=== PATIENT | female | born 1950 | race Caucasian/White ===

== ENCOUNTER 2020-10-14 01:13 | Day surgery (SDC) | payer MEDICARE, SELFPAY ==
[2020-10-06 11:00] VITALS: BMI 28.0
[2020-10-14 09:06] VITALS: BP 139/80; RESP 20; TEMP 35.7; O2SAT 99; BMI 27.8
[2020-10-14] MEDS: LACTATED RINGERS 1,000 ML 150 ML IV CONT (09:27)
[2020-10-14 09:30] LABS: Glucose Point of Care 192 mg/dl (65-105)
--- NOTE | 2020-10-14 10:03 | P.PNAN_ITS ---
Anes - Initial Pre Proc Eval Procedure: Operation Date: 10/14/20 10:00 Proposed Procedures p Screening Colonoscopy - Dane Lua MD Date/Time: 10/14/20 10:03 Surgeon: Daen Lua MD Pre Op Diagnosis: Hx of colon polyps Patient Data Age: 69 Gender: F Height: 1.63 m Weight: 73.6 kg Last Vital Signs Temp 96.2 F L 10/14/20 09:06 Resp 20 10/14/20 09:06 BP 139/80 10/14/20 09:06 Pulse Ox 99 10/14/20 09:06 Allergies Allergy/AdvReac Type Severity Reaction Status Date / Time No Known Allergies Allergy Unverified 10/06/20 11:00 Home Medications Medication Instructions Recorded Confirmed Type atorvastatin 10 mg tablet 10 mg PO DAILY 09/26/19 10/06/20 History metformin 500 mg tablet 500 mg PO TID 09/26/19 10/06/20 History alprazolam 0.25 mg PO BID PRN 10/06/20 10/06/20 History Laboratory Tests 10/14/20 09:20 POC Capillary Glucose 192 mg/dl H mg/dl (65-105) Patient hx anesthesia problems: none Family hx anesthesia problems: none PMFSH Past Medical History Medical History (Updated 09/26/19 @ 09:44 by Calli Mclaughlin CMA) Anxiety Breast cancer Diabetes mellitus Type 2 Renal stones Vaginal delivery 07/24/70, , full term, female, 9#10 03/31/77, , full term, male, 9#12 Surgical History Surgical History (Updated 09/26/19 @ 09:42 by Calli Mclaughlin CMA) History of breast reconstruction 2014 History of myomectomy 1998 [place] teeth extracted Family History Family History (Updated 09/26/19 @ 09:43 by Calli Mclaughlin CMA) Father Acute myocardial infarction Daughter Ovarian cancer Sibling Acute myocardial infarction Social History Social History (Updated 09/26/19 @ 08:42 by Calli Mclaughlin CMA) Smoking status: Never smoker Alcohol intake: never Substance use: never Substance use type: does not use Living arrangements: with family Spiritual care concerns: No Anes - Eval Final PreProcedure Day of Procedure 10/14/20 10:03 Patient weight: overweight Heart: regular rate and rhythm Lungs: clear to auscultation Airway: Mallampati scale class II Neurological: alert and oriented Last oral intake: >/= 8 hours ASA classification: III Emergent: no Anesthetic plan: proceed Anesthesia type and monitoring: general GIVS and standard monitoring Informed Consent: The patient's anesthetic plan and its attendant risks and benefits were discussed with the patient/family/POA. Questions were solicited and answers provided to the satisfaction of the patient/family/POA.
--- NOTE | 2020-10-14 10:11 | P.HP_ITS ---
History of Present Illness History of Present Illness Consent: Risks, benefits, and alternatives have been discussed and questions answered. Patient agrees to proceed with procedure. Chief complaint: Hx of colon polyps Narrative: Yaneth Blank is a 69 year old female Here for colon cancer screening. She had a polyp removed about 5 years ago Review of Systems Review of Systems: All systems reviewed & are unremarkable except as noted in HPI and below PMFSH Past Medical History Medical History Anxiety Breast cancer Diabetes mellitus Type 2 Renal stones Vaginal delivery 07/24/70, , full term, female, 9#10 03/31/77, , full term, male, 9#12 Surgical History Surgical History History of breast reconstruction 2013 History of myomectomy 1998 [place] teeth extracted Family History Family History Father Acute myocardial infarction Daughter Ovarian cancer Sibling Acute myocardial infarction Social History Social History Smoking status: Never smoker Alcohol intake: never Substance use: never Substance use type: does not use Living arrangements: with family Spiritual care concerns: No Meds Home Medications and Allergies Home Medications Medication Instructions Recorded Confirmed Type atorvastatin 10 mg tablet 10 mg PO DAILY 09/26/19 10/06/20 History metformin 500 mg tablet 500 mg PO TID 09/26/19 10/06/20 History alprazolam 0.25 mg PO BID PRN 10/06/20 10/06/20 History Allergies Allergy/AdvReac Type Severity Reaction Status Date / Time No Known Allergies Allergy Unverified 10/06/20 11:00 Vital Signs Vital Signs - 24 hr 10/14/20 09:06 Temperature 35.7 C L Respiratory Rate 20 Blood Pressure 139/80 Pulse Oximetry 99 Exam Resp: Auscultation: clear to auscultation bilaterally Cardio: Rate: regular rate Rhythm: regular rhythm GI: GI Palp: Yes Soft to palpation and No Tenderness to palpation present (GI) Assessment and Plan Assessment and plan (1) Colon cancer screening: Code(s): Z12.11 - Encounter for screening for malignant neoplasm of colon Status: Acute Assessment and Plan: Colonoscopy with possible biopsy or polypectomy or cautery or injection of substances.
[2020-10-14 10:39] VITALS: BP 86/41; PULSE 70; RESP 18; O2SAT 100
[2020-10-14 10:49] VITALS: BP 89/51; PULSE 68; RESP 14; O2SAT 98
[2020-10-14 10:59] VITALS: BP 112/62; PULSE 70; RESP 15; O2SAT 95
== END 2020-10-14 11:15 | disposition home or self-care (01) ==
PROVIDERS: PCP Family Medicine; Visit Provider Internal Medicine Gastroenterology
PROC: 0DJD8ZZ Inspection of Lower Intestinal Tract, Via Natural or Artificial Opening Endoscopic (ICD-10-PCS; CPT 45378; principal; 2020-10-14 10:00)
DX: Z12.11 Encounter for screening for malignant neoplasm of colon (principal); Z86.010 Personal history of colon polyps; K57.30 Diverticulosis of large intestine without perforation or abscess without bleeding; E11.9 Type 2 diabetes mellitus without complications; F41.9 Anxiety disorder, unspecified; Z85.3 Personal history of malignant neoplasm of breast
CPT/HCPCS: G0105; 82948; J7120

== ENCOUNTER 2024-07-22 10:45 | Outpatient (RCR) | payer MEDICARE, SELFPAY ==
[2024-06-10 08:20] VITALS: BMI 27.1
[2024-06-10 08:21] VITALS: BMI 27.1
[2024-07-22 10:44] VITALS: BMI 27.1
[2024-07-22 10:45] VITALS: BMI 27.1
== END 2024-09-02 07:52 | disposition home or self-care (01) ==
LOC: ANHDMC 10:45
PROVIDERS: PCP Family Medicine; Visit Provider Internal Medicine Endocrinology, Diabetes & Metabolism
DX: E11.65 Type 2 diabetes mellitus with hyperglycemia (principal); Z71.3 Dietary counseling and surveillance; Z71.89 Other specified counseling
CPT/HCPCS: 97802; 97803; G0108; G0109

== ENCOUNTER 2024-11-06 14:31 | Outpatient (RCR) | payer MEDICARE, SELFPAY | END 2024-12-19 15:56 | disposition home or self-care (01) | LOC: ANHDMC 14:31 | PROVIDERS: PCP Family Medicine; Visit Provider Internal Medicine Endocrinology, Diabetes & Metabolism | DX: E11.65 Type 2 diabetes mellitus with hyperglycemia (principal); Z71.89 Other specified counseling | CPT/HCPCS: G0109 ==

== ENCOUNTER 2025-01-19 10:36 | Outpatient (CLI) | payer MEDICARE, SELFPAY ==
--- NOTE | ~2025-01-19 | XR_ITS ---
XR abdomen/kub 1V 01/19/2025 10:51 Indication: Abnormal renal function tests. Procedure: KUB Comparison: No prior studies for comparison. Findings: Nonobstructive bowel gas pattern. There are calcifications at the L4-5 level on the left, suspicious for renal stones. There are pelvic phleboliths. There is calcification left mid abdomen lateral to the expected location of the kidney, possibly lymph node calcification. There are splenic arterial calcification. No acute osseous abnormality. Impression: 1: Possible left urolithiasis. Recommend correlation with CT. Reviewed, dictated and finalized at location I. EM CONTROLLER Impression: 1: Possible left urolithiasis. Recommend correlation with CT.
--- OUTSIDE RECORDS SUMMARY | 2025-01-19 12:07 | XMS_ITS | Clinical Summary ---
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 Gender Identity Not on file Sexual Orientation Not on file Plan of Treatment Health Maintenance Due Date Last Done Comments Colon Cancer Screening-Colonoscopy 1949 Depression Screening 1949 Fall Risk Assessment 1950 Hepatitis C Screening 1950 Hepatitis B Screening 11/06/1967 Zoster Vaccine (1 of 2) 11/06/1999 Well Visit 65+ 2014 Osteoporosis Screening-Bone Density Scan 04/26/2015 04/25/2013, 04/25/2013, 01/30/2011 Covid-19 Vaccine (2024- 6 season) 2024 12/31/2023, 01/28/2023, 11/16/2021, Additional history exists Influenza Vaccine (#1) 2024 , 01/28/2023, 11/21/2021, Additional history exists DTaP/Tdap/Td Vaccine (2 - Td or Tdap) 04/14/2033 04/14/2023 Pneumococcal vaccine 65+ Completed 10/18/2020, 07/21 Insurance MEDICARE ADVANTAGE MEDICARE ADVANTAGE Care Teams Buckle And Button Maker Relationship Specialty Start Date End Date Selena Qiu NP [address] [place] [address] [place] [address] PCP - General Family Medicine 10/10/24
--- OUTSIDE RECORDS SUMMARY | 2025-01-19 12:07 | XMS_ITS | Clinical Summary ---
Author Organization [facility] Address [address] [place] [address] Phone Care Team Providers Care Call Or Contact Centre Team Leader Name Role Phone Arabella Troy MD Primary Care Provider + Allergies No known active allergies Medications metFORMIN (GLUCOPHAGE) 500 mg Oral tabletIndication s:Breast lump Take 500 mg by mouth 2 times daily. Active cephALEXin (KEFLEX) 500 mg capsule Take 1 Capsule (500 mg) by mouth daily. 60 Capsule 3 10/13/2019 Active sulfamethoxazole -trimethoprim (BACTRIM DS) 800-160 mg tablet Take 1 Tablet by mouth 2 times daily. 10 Tablet 01/30/2020 Active escitalopram 10 mg tablet Take 10 mg by mouth daily. Active sulfamethoxazole -trimethoprim (BACTRIM DS) 800-160 mg tablet Take 1 Tablet by mouth 2 times daily. 10 Tablet 02/17/2022 Active sulfamethoxazole -trimethoprim (BACTRIM DS) 800-160 mg tablet Take 1 Tablet by mouth 2 times daily. 10 Tablet 06/21/2022 Active cephALEXin (KEFLEX) 500 mg capsule Take 1 Capsule (500 mg) by mouth daily. 60 Capsule 08/25/2022 Active cephALEXin (KEFLEX) 500 mg capsule TAKE 1 CAPSULE(500 MG) BY MOUTH DAILY 90 Capsule 3 03/04/2024 Active atorvastatin (LIPITOR) 40 mg tablet Take 40 mg by mouth daily. Active amLODIPine (NORVASC) 5 mg tablet Take 5 mg by mouth daily. Active ezetimibe (ZETIA) 10 mg tablet Take 10 mg by mouth daily. Active dapagliflozin propanediol (Farxiga) 5 mg Tablet Take by mouth daily. Active ALPRAZolam (XANAX) 0.25 mg tablet Take 0.25 mg by mouth nightly as needed for Anxiety. Active Active Problems Patient Care Coordination No te Formatting of this note migh t be different from the original. Primary Care: Maynor Ramos MD Referring Provider: Ora Almeida MD [facility] [place] [address] Other: Dr Indiana Matias Problem Noted Date Diagnosed Date Diverticulitis large intesti ne w/o perforation or abscess w/o bleeding 03/14/2018 Type 2 diabetes mellitus wit hout complication, without long-term current use of insulin 03/14/2018 Personal history of malignant neoplasm of breast 05/10/2017 Sepsis 05/28/2014 UTI (lower urinary tract infection) 05/28/2014 Severe sepsis 05/28/2014 ARF (acute renal failure) 05/28/2014 S/P bilateral mastectomy 04/27/2014 Pain disorder 04/02/2014 Pyelonephritis 04/01/2014 Nephrolithiasis 04/01/2014 Hypothyroidism 04/01/2014 Breast cancer, (2013) left breast triple neg Overview (03/11/2014): PATHOLOGY: Date: 12/26/13 bx; 02/18/14 bilat mast Breast: L Cell type: IDC, 2.7 cm ER: neg (-) FL: neg (-) Her2 raúl: NA (-) Grade: HG Ki67 83% Lymph node status: neg (-) 0/5 Staging: T2 N0 Mx Stage: II Current cancer treatment regimen if any: FEC-T Malignant neoplasm of female breast 06/14/2010 Overview (07/12/2010): PATHOLOGY: Date: 04/25/10 core, 05/18/10 Lump with SLNBx, 06/01 re-excision Breast: Left Cell type: ILC, 2.8cm ER: (+) 8/8 FL: (+) 8/ Ki67: 71% Her2 raúl: (not) amplified Grade: IG (NH7) Lymph node status: (+) 2/10 (1/7 SLN with ITC, 1/3 ALN +) LVI: (not) present Staging: T2 N1 Mx Stage: II Diabetes mellitus Pyelonephritis, unspecified Generalized pain Resolved Problems Problem Noted Date Diagnosed Date Resolved Date Neutropenia 04/01/2014 11/25/2018 Seroma complicating a procedure 06/14/2010 05/28/2014 Breast lump 04/25/2010 03/03/2014 Abnormal mammogram 04/25/2010 5 Type II or unspecified type diabetes mellitus without mention of complication, not stated as uncontrolled 05/28/2014 Unspecified hypothyroidism 0 05/28/2014 Encounters Date Type Department Care Team Description 01/06/2025 External Device Data [facility] ABSTRACTION Provider, Abstract 12/23/2024 External Device Data [facility] ABSTRACTION Provider, Abstract 10/21/2024 External Device Data [facility] ABSTRACTION Provider, Abstract from Last 3 Months Immunizations Immunization Administration Dates Next Due Influenza Seasonal Unspecified Formulation IM ,11/19/2013 Family History Medical History Relation Name Comments Heart Disease Father heart attack Cancer Maternal Aunt female? 60's Breast Cancer Maternal Cousin 30's Cancer Paternal Aunt liver 50's Cancer Paternal Grandmother leukemia 60's Relation Name Status Comments Father Maternal Aunt Maternal Cousin Paternal Aunt liver Paternal Grandmother leukemia Social History Tobacco Use Types Packs/Day Years Used Date Smoking Tobacco: Never Smokeless Tobacco: Never Tobacco Cessation:Counseling Given: Yes Alcohol Use Standard Drinks/Week Comments Yes 0 (1 standard drink = 0.6 oz pur e alcohol) rare Comments No Sex and Gender Information Value Date Recorded Sex Assigned at Not on file Legal Sex Female 6:00 AM MANAGER RADIATION Gender Identity Not on file Sexual Orientation Not on file Occupation Industry Job Start Date Job End Date Not on file Not on file Not on file Not on file Last Filed Vital Signs Vital Sign Reading Time Taken Comments Blood Pressure 126/72 09/18/2024 1:23 PM CDT Pulse 93 09/18/2024 1:23 PM CDT Temperature 36.9 C (98.5 F) 09/18/2024 1:23 PM CDT Respiratory Rate 18 09/18/2024 1:23 PM CDT Oxygen Saturation 96% 09/18/2024 1:23 PM CDT Inhaled Oxygen Concentration - - Weight 71.7 kg (158 lb 1.6 oz) 09/18/2024 1:23 P M CDT Height 162.6 cm (5' 4) 09/18/2024 1:23 PM CDT Body Mass Index 27.14 09/18/2024 1:23 PM CDT Plan of Treatment Health Maintenance Due Date Last Done Comments DIABETES ANNUAL FOOT EXAM 11/06/1967 DIABETES MICROALBUMIN ANNUAL SCREEN 11/06/1967 DTAP/TDAP/TD VACCINES (1 - Tdap) 1968 FIT-DNA Q 3 years 1994 FIT/FOBT Q 1 year 1994 Flex Sig/CT Colonography Q 5 years 1994 ZOSTER VACCINE (1 of 2) 11/06/1999 LDL CHOLESTEROL ANNUAL 07/22/2015 07/21/2014 DIABETES HBA1C Q 6 MONTHS 02/15/20232022, 05/23/2022, 02/28/2022, Additional history exists DIABETES ANNUAL RETINAL EXAM 03/20/2023, 02/27/2022, 01/07/2021, Additional history exists OSTEOPOROSIS SCREENING 08/27/2024 0, 08/28/2019, 04/25/2013, Additional history exists INFLUENZA VACCINE (#1) 2024 2, 12/01/2020, 12/19/2018, Additional history exists COVID-19 Vaccine ( - 2024-2 6 season) 2024 11/16/2021, 04/22/2020, 03/25/2020 RSV VACCINE (60+ or ) (1 - 1-dose 75+ series) 2024 COLORECTAL SCREENING 10/14/2030 10/14/2020, 04/28/2015, 04/27/2015 Colorectal Cancer Screening 10/14/2030 PNEUMOCOCCAL VACCINE 50+ YEARS Completed 10/18/2020 , 08/18/2019 Medical Devices Implanted Type Area Visiting Professor Device Identifier Shelf Expiration Date Model / Serial / Lot Mammary Silicone Gel 500ml - - [id number] Implanted:Qty : 1 on 09/23/2014 by Maynor Phelps MD at [facility] Mammary Right: Breast [employer]- MEDICAL 10/19/2017-500 / / [id number] Mammary Silicone Gel 475ml 20-475 - [id number] Implanted:Qty : 1 on 09/23/2014 by Maynor Phelps MD at [facility] Mammary Left: Breast [employer]ICAL 06/18/2017 20-475 / / [id number] Stent Prcflx Plus [id number] 175-603 - [id number] Implanted:Qty : 1 on 08/06/2014 by Bethel Lopez MD at [facility] Stent Left: Ureter [employer]- UROLOGY/DOUGHNUT MACHINE OPERATOR HELPER 03/20/2017 175-253 / / [id number] Port A Cath Explanted Type Area Visiting Professor Device Identifier Shelf Expiration Date Model / Serial / Lot Harness Worker Mammary 400ml 133mv-13 - [id number] Implanted:Qty : 1 on 02/18/2014 by Maynor Phelps MD at [facility] Explanted:Qty : 1 on 09/23/2014 by Maynor Phelps MD at [facility] Left: Breast [employer]- MEDICAL 12/19/2016 133MV-13 / [id number] / [id number] Description:Initial fill 120 ml Harness Worker Mammary 400ml 133mv-13 - [id number] Implanted:Qty : 1 on 02/18/2014 by Maynor Phelps MD at [facility] Explanted:Qty : 1 on 09/23/2014 by Maynor Phelps MD at [facility] Mammary Right: Breast [employer]ICAL 10/16/2017 133MV-13 / [id number] / [id number] Description:Initial fill-120 ml Stent Contour [id number] 180-223 - [id number] Implanted:Qty : 1 on 05/28/2014 by Bethel Lopez MD at [facility] Stent Right: Ureter [employer]- UROLOGY/DOUGHNUT MACHINE OPERATOR HELPER 02/17/2017 180-223 / / [id number] Stent Contour [id number] 180-224 - [id number] Implanted:Qty : 1 on 05/28/2014 by Bethel Lopez MD at [facility] Explanted:Qty : 1 on 08/06/2014 by Bethel Lopez MD at [facility] Stent Left: Ureter [employer]- UROLOGY/DOUGHNUT MACHINE OPERATOR HELPER 08/18/2016 180-224 / / [id number] Port Implanted:Qty : 1 on 04/29/2014 by Rosalba Eduardo MD Explanted:Qty : 1 on 11/02/2014 by Margoth Cortez MD at [facility] Chest Wall CR BARD- ACCESS SYS 12/19/2015 [id number] / / [id number] Description:8fr ISP Power Po rt placed by Procedures Procedure Name Priority Date/Time Associated Diagnosis Comments LIPID PANEL Routine 07/21/2014 9:35 AM CDT HEMOGLOBIN A1C Routine 07/21/2014 9:35 AM CDT XR DEXA BONE DENSITY AXIAL 1 OR MORE SITES Routine 04/25/2013 10:52 AM MANAGER RADIATION Special screening for osteoporosis Asymptomatic postmenopausal status (age-related) (natural) from Last 3 Months or Most Recently Relevant to Health Maintenance Results * HEMOGLOBIN A1C (07/21/2014 9:35 AM CDT) Pathologist [facility] HEMOGLOBIN A1C 6.1 4.1 - 6.1 % 07/21/2014 3:32 PM CDT [facility] EST. AVG GLUCOSE, A1C 128 mg/dL 07/21/2014 3:32 PM CDT [facility] Blood Collection / Unknown 07/21/2014 9:35 AM CDT 07/21/2014 9:34 AM CDT Narrative [facility] - 07/21/2014 3:32 PM CDT Based on the ADAG study equation. us External Provider [facility] CHEMISTRY ORDERABLES Fin al Result [facility] CLIA# [id number] 5 [facility] [place] [id number] * (ABNORMAL) LIPID PANEL (07/21/2014 9:35 AM CDT) Pathologist [facility] CHOLESTEROL 158 100 - 199 mg/dL 07/21/2014 10:18 AM CDT [facility] TRIGLYCERIDE 188(H) 10 - 149 mg/dL 07/21/2014 10:18 AM CDT [facility] HDL 42 40 - 59 mg/dL 07/21/2014 10:18 AM T [facility] LDL CALCULATED 78 <99 mg/dL 07/21/2014 10:18 AM CDT [facility] NON-HDL CHOLESTEROL 116 <130 mg/dL 07/21/2014 10:18 AM T [facility] Blood Collection / Unknown 07/21/2014 9:35 AM CDT 07/21/2014 9:34 AM CDT Narrative [facility] - 07/21/2014 10:18 AM CDT TOTAL CHOLESTEROL mg/dL Desirable <200 Borderline high 200-239 High >=240 TRIGLYCERIDES mg/dL Normal <150 Borderline high 150-199 High 200-499 Very high >=500 HDL CHOLESTEROL mg/dL Low <40 Normal 40-60 Desirable >60 LDL CHOLESTEROL mg/dL Optimal <100 Low risk 100-129 Borderline high 130-159 High 160-189 Very high >=190 NON HDL CHOLESTEROL mg/dL Desirable <130 Borderline high 130-159 High 160-189 Very high >=190 Based on AHA/NCEP Guidelines us External Provider [facility] CHEMISTRY ORDERABLES Fin al Result [facility]# [id number] 5 [facility] [place] [address] * XR DEXA BONE DENSITY AXIAL 1 OR MORE SITES (04/25/2013 10:52 AM MANAGER RADIATION) Anatomical Region Laterality Modality Computed Radiogr aphy 04/25/2013 10:5 1 AM MANAGER RADIATION Narrative 04/25/2013 10:59 AM MANAGER RADIATION XR DEXA BONE DENSITY AXIAL 1 OR MORE SITES Dictated from Location 1 ([facility]) HISTORY: 62 yo F with postmenopausal symptoms on calcium supplementation on vitamin D supplementation, with a history of breast carcinoma needing evaluation for osteoporosis. PROCEDURE: Using a [employer] dual energy x-ray absorptiometry system, the patient's bone mineral density was measured over the lumbar spine and femoral necks. Comparison was made to age and sex matched normal values. FINDINGS: Lumbar Spine (L1-L4) Bone Mineral Density = 1.179 gm/cm2 Compared to young adult (T-score), difference of 0.0 Standard Deviations. The patient's spine BMD is normal when compared to that of a young adult. Left Femoral Neck Bone Mineral Density = 1.014 gm/cm2 Compared to young adult (T-score), difference of -0.2 Standard Deviations. The patient's left femoral neck BMD is normal when compared to that of a young adult. Right Femoral Neck Bone Mineral Density = 0.983 gm/cm2 Compared to young adult (T-score), difference of -0.4 Standard Deviations. The patient's right femoral neck BMD is normal when compared to that of a young adult. Comparison is made to the most recent measurements of BMD dated 01/30/2011. The prior spine (L1-L4) BMD was 1.219 gm/cm2. Today's value represents a change of -3.3%, a statistically significant change. The prior left femoral neck BMD was 1.055 gm/cm2. Today's value represents a change of -3.9%, a statistically significant change. The prior right femoral neck BMD was 1.040 gm/cm2. Today's value represents a change of -5.5%, a statistically significant change. A significant change is defined as a change of at least 2.5 standard deviations since the prior study. Procedure Note Tayo Cr DO - 04/25/2013 XR DEXA BONE DENSITY AXIAL 1 OR MORE SITES Dictated from Location 1 ([facility]) HISTORY: 62 yo F with postmenopausal symptoms on calcium supplementation on vitamin D supplementation, with a history of breast carcinoma needing evaluation for osteoporosis. PROCEDURE: Using a [employer] dual energy x-ray absorptiometry system, the patient's bone mineral density was measured over the lumbar spine and femoral necks. Comparison was made to age and sex matched normal values. FINDINGS: Lumbar Spine (L1-L4) Bone Mineral Density = 1.179 gm/cm2 Compared to young adult (T-score), difference of 0.0 Standard Deviations. The patient's spine BMD is normal when compared to that of a young adult. Left Femoral Neck Bone Mineral Density = 1.014 gm/cm2 Compared to young adult (T-score), difference of -0.2 Standard Deviations. The patient's left femoral neck BMD is normal when compared to that of a young adult. Right Femoral Neck Bone Mineral Density = 0.983 gm/cm2 Compared to young adult (T-score), difference of -0.4 Standard Deviations. The patient's right femoral neck BMD is normal when compared to that of a young adult. Comparison is made to the most recent measurements of BMD dated 01/30/2011. The prior spine (L1-L4) BMD was 1.219 gm/cm2. Today's value represents a change of -3.3%, a statistically significant change. The prior left femoral neck BMD was 1.055 gm/cm2. Today's value represents a change of -3.9%, a statistically significant change. The prior right femoral neck BMD was 1.040 gm/cm2. Today's value represents a change of -5.5%, a statistically significant change. A significant change is defined as a change of at least 2.5 standard deviations since the prior study. Mandie Bardales DO DIAGNOSTIC IMAGING ORDERABL ES Final Result from Last 3 Months or Most Recently Relevant to Health Maintenance Insurance Advance Directives For more information, please contact: [phone] * Full Code (Latest Code Status on File) Date Activated Date Inactivated Comments 03/14/2018 2:55 AM 03/14/2018 10:12 PM * Full Code Date Activated Date Inactivated Comments 11/02/2014 9:58 AM 11/02/2014 2:06 PM * Full Code Date Activated Date Inactivated Comments 09/23/2014 9:12 AM 09/23/2014 6:05 PM * Full Code Date Activated Date Inactivated Comments 08/06/2014 10:42 AM 08/06/2014 7:46 PM * Full Code Date Activated Date Inactivated Comments 05/28/2014 3:03 PM 06/01/2014 6:01 PM Care Teams Call Or Contact Centre Team Leader Relationship Specialty Start Date End Date Arabella Troy MD [address] [place] [address] [place] [address] PCP - General Family Practice 05/02/21
--- OUTSIDE RECORDS SUMMARY | 2025-01-19 12:07 | XMS_ITS | Clinical Summary ---
Author Organization [facility] Address [address] [place] [address] Care Team Providers Care Bridge Manager Name Role Phone Unavailable Primary Care Provider Unavailabl e Source Comments [facility],non-owned Affiliates and Associated Physician Practices is amultiple site organization consisting of ambulatory clinics and hospital sitesin [place] and [place]. This disclosure is being madepursuant to the Care Everywhere program and may not contain all information available regarding this patient. Last updated 17.[facility] Social History Tobacco Use Types Packs/Day Years Used Date Smoking Tobacco: Never Assessed Comments Unknown Sex and Gender Information Value Date Recorded Sex Assigned at Not on file Legal Sex Female 4:20 PM CDT Gender Identity Not on file Sexual Orientation Not on file Plan of Treatment Health Maintenance Due Date Last Done Comments COLOGUARD (AGES 45-75) - COL ON CA SCREENING 1950 COLON MONITORING 1950 COLONOSCOPY - COLON CA SCREENING 1949 CT COLONOGRAPHY - COLON CA SCREENING 1950 Colorectal Cancer Screening 1950 FIT - COLON CA SCREENING 1949 FLEX SIG - COLON CA SCREENING 1949 LIPID TESTING 1950 MEDICARE AWV 12 MONTHS 1950 HEPATITIS C SCREENING 11/01/1967 DTAP/TDAP/TD VACCINES (1 - Tdap) 1968 PNEUMOCOCCAL VACCINE 50+ (1 of 1 - PCV) 11/06/1999 ZOSTER VACCINE (1 of 2) 11/06/1999 MAMMOGRAM 04/26/2015 04/25/2013, 04/19/2012 DEPRESSION SCREENING 02/20/2024 COVID-19 VACCINE (3 - 2024-2 6 season) 2024 04/22/2020, 03/25/2020 INFLUENZA VACCINE (#1) 2024 8, 11/19/2013 Respiratory Syncytial Virus (RSV) Vaccine Pt: or over 60 yrs (1 - 1-dose 75+ series) 2024 BONE DENSITY TESTING Completed 08/28/2019, 04/25/2013, 01/30/2011 HEPATITIS B VACCINE Aged Out No longe r eligible based on patient's age to complete this topic HIB VACCINE Aged Out No longer eligi ble based on patient's age to complete this topic HPV VACCINE Aged Out No longer eligi ble based on patient's age to complete this topic MENINGOCOCCAL (Group B) VACCINE SHARED DECISION-MAKING Aged Out No longer eligible based on patient's age to complete this topic MENINGOCOCCAL GROUPS A/C/Y/W VACCINE Aged Out No longer eligible b ased on patient's age to complete this topic Insurance MEDICARE
--- OUTSIDE RECORDS SUMMARY | 2025-01-19 12:07 | XMS_ITS ---
Author Organization [facility] Address [address] [place] [address] Phone Care Team Providers Care Watchmaking Teacher Name Role Phone Arabella Troy MD Primary Care Provider + Active Problems Patient Care Coordination No te Formatting of this note migh t be different from the original. 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 Past Treatment and Therapy Plans ONCOLOGY THERAPY PLAN Plan Name Start Date Discontinue Date Treatment Medications Discontinue Reason Plan Provider BLANK SUPPORTIVE CARE THERAPY PLAN 03/24/2014 08/12/2015 No medications scheduled. Other Mandie Bardales DO ONCOLOGY TREATMENT Plan Name Start Date Discontinue Date Treatment Medications Discontinue Reason Plan Provider Cycles OP ONC BREAST_DO CETAXEL_E VERY 21 DAYS 05/27/2014 08/12/2015 DOCEtaxel (TAXOTERE) IVPB Therapy Complete Mandie Bardales DO 3 of 3 cycles started OP ONC BREAST_ FLUOROURA CIL_EPIRU BICIN_CYC LOPHOSPHA MIDE (FEC) EVERY 21 DAYS 03/24/2014 05/26/2014 cycloPHOSphamide (CYTOXAN) IVPBepiRUBicin (ELLENCE) 50 mg/25 mLfluoruracil (5-FU) injectable syringe Therapy Complete Mandie Bardales DO 3 of 3 cycles started Lifetime Dose Tracking * Chemical Lifetime Dose Automatic Entry Manual Entr y epirubicin 304.299 mg/m2 (579 mg) 304.299 mg/m2 (579 mg) 0 mg/m2 (0 mg) Effective Dose 33.2 mSv 33.2 mSv 0 mSv Total DLP 1,717 DLP 1,717 DLP 0 DLP CTDIvol Max 29.6 mGy 29.6 mGy 0 mGy CTDIvol Min 27.5 mGy 27.5 mGy 0 mGy Resolved Problems Problem Noted Date Diagnosed Date Resolved Date Neutropenia 04/01/2014 11/25/2018 Seroma complicating a procedure 06/14/2010 05/28/2014 Breast lump 04/25/2010 03/03/2014 Abnormal mammogram 04/25/2010 5 Type II or unspecified type diabetes mellitus without mention of complication, not stated as uncontrolled 05/28/2014 Unspecified hypothyroidism 0 05/28/2014
--- OUTSIDE RECORDS SUMMARY | 2025-01-19 12:07 | XMS_ITS | Encounter Summary ---
Author Organization [facility] Address [address] [place] [address] Care Team Providers Care Medical Research Scientist Name Role Phone Unavailable Primary Care Provider Unavailabl e Encounter Details Date Type Department Care Team (Late st Contact Info) Description 07/28/2022 Lab Requisition [facility] - DermPath Lab [address] [place] [id number] Momo Arriaga MD [facility] DERMATOLOGY [address] [place] [phone] Neoplasm of uncertain behavior of skin Social History Tobacco Use Types Packs/Day Years Used Date Smoking Tobacco: Never Assessed Comments Unknown Sex and Gender Information Value Date Recorded Sex Assigned at Not on file Legal Sex Female 4:20 PM CDT Gender Identity Not on file Sexual Orientation Not on file documented as of this encounter Plan of Treatment Not on file documented as of this encounter Procedures Procedure Name Priority Date/Time Associated Diagnosis Comments DERMATOPATHOLOGY Routine 07/28/2022 3:33 AM CDT Neoplasm of uncertain behavior of skin [ICD-10-CM] documented in this encounter Results * DERMATOPATHOLOGY (07/28/2022 3:33 AM CDT) Case Report Dermatopathology Report Case: [id number] Authorizing Provider: Momo Arriaga MD Collected: 07/28/2022 03:33 AM Ordering Location: [facility] DermPath Lab Received: 07/31/2022 12:16 PM Pathologist: Ciera Nowak MD Specimen: Skin, right anterior shooulder 12:20 PM CDT DERMATOPATHOLOGY LABORATORY Final Diagnosis Specimen A. SKIN, right anterior shooulder: BASAL CELL CARCINOMA, NODULAR TYPE (C44.612) 3 12:20 PM CDT DERMATOPATHOLOGY LABORATORY at 1220 CDT Clinical History Basal Cell Carcinoma 3 12:20 PM CDT DERMATOPATHOLOGY LABORATORY Gross Description Specimen A: Received is one formalin filled container labeled with the patient's name and designated right anterior shooulder. The specimen consists of a shave biopsy measuring 5x3x1 mm. Jar 0. 3 12:20 PM CDT DERMATOPATHOLOGY LABORATORY Microscopic Description Specimen A. SKIN, right anterior shooulder: Within the dermis there are aggregates of basaloid cells with a high nuclear to cytoplasmic ratio and peripheral palisading. 3 12:20 PM CDT DERMATOPATHOLOGY LABORATORY Disclaimer An external and internal positive and negative controls are appropriate for the histochemical, immunohistochemical and immunofluorescence stain(s) in this case (if any), except where stated explicitly. The performance characteristics of the stain(s) cited in this report were developed and its performance characteristic determined by the Dermatopathology Laboratory at [facility], directed by Dr. Rahat Miner. These tests need not be, and therefore are not, approved by the [place] Food and Drug Administration. The tests are used for clinical purposes. Billing Codes Specimen Charges Stain Charges 95055 1 3 12:20 PM CDT DERMATOPATHOLOGY LABORATORY Embedded Images 3 12:20 PM CDT DERMATOPATHOLOGY LABORATORY Pathology/Cytolo gy TISSUE SPECIMEN FROM SKIN / Unknown 07/28/2022 3:33 AM CDT 07/31/2022 12:16 PM CDT us Momo Arriaga MD LAB - PATHOLOGY/CYTOLOGY KASSIDY GUAJARDO Final Result DERMATOPATHOLOGY LABORATORY [facility] - Department of Dermatology [address] [place] [address], [facility] [phone] documented in this encounter Visit Diagnoses Diagnosis Neoplasm of uncertain behavior of skin documented in this encounter
--- OUTSIDE RECORDS SUMMARY | 2025-01-19 12:07 | XMS_ITS | Clinical Summary ---
Author Organization [facility] Address [address] [place] [id number] Care Team Providers Care Grain Spouter Name Role Phone Lynsey Waldron Primary Care Provider [phone] Allergies No known active allergies Medications ALPRAZolam 0.25 MG tablet Take 1 tablet (0.25 mg total) by mouth 2 (two) times daily as needed. 0 Active metFORMIN ER (GLUCOPHAGE-XR) 500 MG 24 hr tablet 3 Active amLODIPine (NORVASC) 5 MG tablet amlodipine 5 mg tablet 3 Active escitalopram (LEXAPRO) 20 MG tablet 3 Active ezetimibe (ZETIA) 10 MG tablet ezetimibe 10 mg tablet 3 Active atorvastatin (LIPITOR) 40 MG tablet 3 Active vitamin D3, cholecalciferol , 125 mcg capsule Take 1 capsule (125 mcg total) by mouth daily. Active Active Problems No known active problems Immunizations Immunization Administration Dates Next Due Fluzone High Dose - >Age 65 (Prefilled Syringe) 12/19/2018,11/21/2017 Influenza (Generic) 12/19/2017,11/19/2013 MODERNA COVID-19 (12+) MRNA, LNP-S, PF, 100 MCG/ 0.5 ML DOSE 04/22/2020,03/25/2020 Pneumococcal (Pneumovax 23) 10/18/2020 Pneumococcal (Prevnar 13) 08/18/2019 Family History Medical History Relation Comments Heart Disease Father Pulmonary Fibrosis Mother Relation Status Comments Father Mother Social History Tobacco Use Types Packs/Day Years Used Date Smoking Tobacco: Never Passive Smoke Exposure: Never Smokeless Tobacco: Never Alcohol Use Standard Drinks/Week Comments Never 0 (1 standard drink = 0.6 oz pur e alcohol) AUDIT-C Answer Date Recorded Frequency of Alcohol Consumption Never 08/26/2019 Average Number of Drinks Not on file 020 Frequency of Binge Drinking Not on file 08/2019 PHQ-2 Answer Date Recorded Patient Health Questionnaire-2 Score 2 12/29/2022 Comments No Sex and Gender Information Value Date Recorded Sex Assigned at Not on file Legal Sex Female 3:31 PM CDT Gender Identity Not on file Sexual Orientation Not on file Last Filed Vital Signs Vital Sign Reading Time Taken Comments Blood Pressure 118/70 12/29/2022 9:53 AM [employer] OFFICER Pulse 65 12/29/2022 9:53 AM [employer] OFFICER Temperature 36.8 C (98.2 F) 12/29/2022 9:53 AM [employer] OFFICER Respiratory Rate 20 12/29/2022 9:53 AM [employer] OFFICER Oxygen Saturation 96% 12/29/2022 9:53 AM [employer] OFFICER Inhaled Oxygen Concentration - - Weight 73 kg (161 lb) 12/29/2022 9:53 AM [employer] OFFICER Height 160 cm (5' 3) 12/29/2022 9:53 AM [employer] OFFICER Body Mass Index 28.52 12/29/2022 9:53 AM [employer] OFFICER Plan of Treatment Health Maintenance Due Date Last Done Comments Colorectal Cancer Screening Colonoscopy (10 Years) 1949 Hepatitis C 11/06/1967 DTaP, Tdap and Td Vaccines (1 - Tdap) 1968 Zoster Vaccines (1 of 2) 11/06/1999 Annual Medicare Wellness Visit 2014 COVID-19 Vaccine ( season) 2024 11/16/2021, 07/08/2021, 01/27/2021, Additional history exists RSV Immunization or 60+ Years (1 - 1-dose 75+ series) 2024 Influenza Adult (#1) 2024 12/19/2018, 12/19/2017, 11/21/2017, Additional history exists Dexa Scan (General) Completed 08/28/2019 Pneumococcal Vaccine: 50+ Years Completed 10/18/2020, 08/18/2019 Hepatitis A Vaccines Aged Out No long er eligible based on patient's age to complete this topic Meningococcal B Vaccine Aged Out No l onger eligible based on patient's age to complete this topic Meningococcal Vaccine Aged Out No sherley felipa eligible based on patient's age to complete this topic RSV Immunizations Under 20 Months Aged Out No longer eligible based on patient's age to complete this topic Procedures Procedure Name Priority Date/Time Associated Diagnosis Comments BONE DENSITY/DEXA Routine 08/28/2019 10: 23 AM CDT Post-menopause from Last 3 Months or Most Recently Relevant to Health Maintenance Results * BONE DENSITY/DEXA (08/28/2019 10:23 AM CDT) Anatomical Region Laterality Modality Bone Bone Density 08/28/2019 10:4 3 AM CDT Impressions 08/28/2019 10:44 AM CDT FINDINGS AND IMPRESSION: Examination performed on a [employer]iq Discovery SL .: LUMBAR SPINE L2-L4: 1. BMD: 1.004 g/cm2. 2. T score: -0.7. Previous T score: No previous available. 3. WHO classification: Below normal young adult range. 4. Fracture risk: Very low. LEFT FEMORAL NECK: 1. BMD: 0.809 g/cm2. 2. T score: -0.4. Previous T score: No previous available. 3. WHO classification: Normal young adult range. 4. Fracture risk: Very low. Voice recognition software utilized. Interpreted By: Moy Farrell, 08/28/2019 10:43 AM Narrative 08/28/2019 10:44 AM CDT Examination: BONE DENSITY/DEXA Exam date/time: 08/28/2019 10:04 AM Comparison studies:No previous available. Clinical history: Asymptomatic menopausal state Procedure Note Moy Farrell MD - 08/28/2019 Examination: BONE DENSITY/DEXA Exam date/time: 08/28/2019 10:04 AM Comparison studies:No previous available. Clinical history: Asymptomatic menopausal state FINDINGS AND IMPRESSION: Examination performed on a [employer] Discovery SL .: LUMBAR SPINE L2-L4: 1. BMD: 1.004 g/cm2. 2. T score: -0.7. Previous T score: No previous available. 3. WHO classification: Below normal young adult range. 4. Fracture risk: Very low. LEFT FEMORAL NECK: 1. BMD: 0.809 g/cm2. 2. T score: -0.4. Previous T score: No previous available. 3. WHO classification: Normal young adult range. 4. Fracture risk: Very low. Voice recognition software utilized. Interpreted By: Moy Farrell, 08/28/2019 10:43 AM Lynsey HATFIELD DEXA Final Result from Last 3 Months or Most Recently Relevant to Health Maintenance Insurance MEDICARE [facility] Care Teams Grain Spouter Relationship Specialty Start [place] [address] [place] [address] PCP - General PHYSICIAN ASSOCIATE MEDIA PLANNER 08/26/19
== END 2025-01-19 10:37 | disposition home or self-care (01) ==
PROVIDERS: PCP Nurse Practitioner Family; Visit Provider Internal Medicine Nephrology
DX: R94.4 Abnormal results of kidney function studies (principal)
CPT/HCPCS: 74018